=== PATIENT | female | born 1960 | race African-American/Black ===

== ENCOUNTER 2017-12-07 09:14 | Emergency (ER) | payer SELFPAY ==
[2017-12-07] MEDS ORDERED: SODIUM CHLORIDE 0.9% 1,000 ML IV ONE (09:39)
--- NOTE | 2017-12-07 09:42 | ED Physician Documentation ---
PD HPI NVD - Stated complaint Stated Complaint: ABD PX - Chief complaint Chief Complaint: Abd Pain - History obtained from History obtained from: Patient, Family - History of Present Illness Timing - onset: How many days ago (3) Timing - duration: Days (3) Timing - details: Gradual onset, Still present Associated symptoms: Abdominal pain, Dizzy, Loss of appetite, Other (diarrhea) Contributing factors: Other (hot work environment with exposure to glue gun fumes.) Improved by: Laying still Worsened by: Eating, Moving, Position, Palpation Similar symptoms before: Has not had sx before Recently seen: Not recently seen - Additonal information Additional information: Previously healthy 57-year-old female works at [employer]. 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 The following day she spent most of the day in bed and had the onset of diarrhea. She developed some abdominal pain on on that day and yesterday pain was worse as well as vomiting. She has had a decreased appetite and she has felt warm. Review of Systems Constitutional: reports: Fever, Fatigue, Sweats Eyes: denies: Decreased vision Ears: denies: Ear pain Nose: denies: Rhinorrhea / runny nose, Congestion Throat: denies: Sore throat Cardiac: denies: Chest pain / pressure, Palpitations Respiratory: denies: Dyspnea, Cough GI: reports: Abdominal Pain, Nausea, Vomiting, Diarrhea : denies: Dysuria, Frequency Skin: denies: Rash Musculoskeletal: denies: Neck pain, Back pain, Extremity pain Neurologic: reports: Generalized weakness. denies: Focal weakness, Numbness PD PAST MEDICAL HISTORY - Present Medications Home Medications: Ambulatory Orders Medication Instructions Recorded Confirmed No Known Home Medications [No 12/07/17 12/07/17 Known Home Medications] - Allergies Allergies/Adverse Reactions: Allergies Allergy/AdvReac Type Severity Reaction Status Date / Time No Known Drug Allergies Allergy Verified 12/07/17 09:19 PD ED PE NORMAL - Vitals Vital signs reviewed: Yes (hypertensive ) - General General: Alert and oriented X 3, No acute distress, Well developed/nourished - HEENT HEENT: Atraumatic, PERRL, EOMI - Neck Neck: Supple, no meningeal sign, No bony TTP - Cardiac Cardiac: RRR, No murmur - Respiratory Respiratory: No respiratory distress, Clear bilaterally - Abdomen Abdomen: Soft, Other (RLQ tenderness with referred tenderness and reproducible tenderness. ) - Back Back: No CVA TTP, No spinal TTP - Derm Derm: Normal color, Warm and dry, No rash - Extremities Extremities: No deformity, No edema - Neuro Neuro: Alert and oriented X 3, No motor deficit, No sensory deficit, Normal speech Eye Opening: Spontaneous Motor: Obeys Commands Verbal: Oriented GCS Score: 15 - Psych Psych: Normal mood, Normal affect Results - Vitals Vitals: Vital Signs - 24 hr 12/07/17 12/07/17 09:20 11:28 Temperature 36.0 C L 36.5 C Heart Rate 87 70 Respiratory 16 16 Rate Blood Pressure 167/86 H 133/93 H O2 Saturation 99 100 Oxygen O2 Source Room air - Labs Labs: Laboratory Tests 12/07/17 12/07/17 12/07/17 10:15 10:15 10:15 WBC 7.0 RBC 4.41 Hgb 12.6 Hct 38.6 MCV 87.5 MCH 28.6 MCHC 32.6 RDW 13.6 Plt Count 278 MPV 8.4 Neut # (Auto) 4.0 Lymph # (Auto) 2.3 [place] # (Auto) 0.5 Eos # (Auto) 0.1 Baso # (Auto) 0.0 Absolute Nucleated RBC 0.00 Nucleated RBC % 0.0 Sodium 135 Potassium 3.4 L Chloride 103 Carbon Dioxide 26 Anion Gap 6.0 BUN 5 L Creatinine 0.9 Estimated GFR (MDRD) 78 L Glucose 95 Calcium 8.7 Total Bilirubin 0.6 AST 20 ALT 18 Alkaline Phosphatase 102 Total Protein 7.5 Albumin 3.8 Globulin 3.7 Albumin/Globulin Ratio 1.0 Lipase 20 L Urine Color LIGHT YELLOW Urine Clarity CLEAR Urine pH 6.0 Ur Specific [place] <=1.005 Urine Protein NEGATIVE Urine Glucose (UA) NEGATIVE Urine Ketones NEGATIVE Urine Occult Blood NEGATIVE Urine Nitrite NEGATIVE Urine Bilirubin NEGATIVE Urine Urobilinogen 0.2 (NORMAL) Ur Leukocyte Esterase NEGATIVE Ur Microscopic Review NOT INDICATED Urine Culture Comments NOT INDICATED - Rads (name of study) CT abd pel Radiology: Prelim report reviewed (Impression: 1. No bowel obstruction or inflammatory process associated with the bowel 2. no free air or fluid in the abdomen or pelvis 3. the appendix images normally.), EMP read indepedently, See rad report Procedures - IVC sono (time) 4973 Bedside IVC sono: IVC measures (cm) (1.27), Dehydration (est 1 liter deficit) PD MEDICAL DECISION MAKING - ED course Complexity details: reviewed old records, reviewed results, re-evaluated patient , considered differential, d/w patient, d/w family ED course: 57 y/o female not feeling well after heated work day and fumes from glue gun is found to be dehydrated and she is administered IV saline. The patient has right lower quadrant pain on exam and CT scan of the abdomen and pelvis reveals a normal appendix and bowels and a large fibroid that is heavily calcified and appears large enough to cause symptoms. She feels much improved with hydration and her work place is excessively hot. I will place her off work this week and ask her to follow up with RESIDENTIAL SALES REPRESENTATIVE with regards to the fibroid. - Sepsis Event Vital Signs: Vital Signs - 24 hr 12/07/17 12/07/17 09:20 11:28 Temperature 36.0 C L 36.5 C Heart Rate 87 70 Respiratory 16 16 Rate Blood Pressure 167/86 H 133/93 H O2 Saturation 99 100 Oxygen O2 Source Room air Departure - Departure Disposition: 01 Home, Self Care Clinical Impression: Dehydration Fibroid, uterine Qualifiers: Uterine leiomyoma location: unspecified location Qualified Code(s): D25.9 - Leiomyoma of uterus, unspecified Condition: Stable Instructions: ED Dehydration, ED Fibroids Follow-Up: [facility] [Provider Group] [facility] [Provider Group] Forms: Activity restrictions
[2017-12-07 10:22] LABS: BASOPHILS % (AUTO) 0.6 %; EOSINOPHILS # (AUTO) 0.1 10^3/uL (0.0-0.7); HGB - HEMOGLOBIN 12.6 g/dL (12.0-16.0); LYMPHOCYTES # (AUTO) 2.3 10^3/uL (1.5-3.5); LYMPHOCYTES % (AUTO) 32.6 %; MEAN CORPUSCULAR HEMOGLOBIN 28.6 pg (27.0-31.0); MEAN CORPUSCULAR HGB CONC 32.6 g/dL (32.0-36.0); MEAN CORPUSCULAR VOLUME 87.5 fL (81.0-99.0); MEAN PLATELET VOLUME 8.4 fL (7.9-10.8); MONOCYTES # (AUTO) 0.5 10^3/uL (0.0-1.0); MONOCYTES % (AUTO) 7.3 %; NEUTROPHILS % (AUTO) 57.5 %; PLT - PLATELET COUNT 278 10^3/uL (130-450); RED BLOOD COUNT 4.41 10^6/uL (4.20-5.40); RED CELL DISTRIBUTION WIDTH 13.6 % (12.0-15.0)
[2017-12-07 10:23] LABS: BILIRUBIN,URINE NEGATIVE (NEGATIVE); GLUCOSE, URINE (UA) NEGATIVE (NEGATIVE); KETONES,URINE (UA) NEGATIVE (NEGATIVE); LEUKOCYTE ESTERASE, URINE NEGATIVE (NEGATIVE); NITRITE,URINE NEGATIVE (NEGATIVE); OCCULT BLOOD,URINE NEGATIVE (NEGATIVE); PROTEIN,URINE NEGATIVE (NEGATIVE); UROBILINOGEN,URINE 0.2 (NORMAL) E.U./dL (NORMAL)
[2017-12-07 10:26] LABS: CLARITY,URINE CLEAR (CLEAR)
[2017-12-07 10:35] LABS: ALBUMIN 3.8 g/dL (3.2-5.5); BILIRUBIN,TOTAL 0.6 mg/dL (0.2-1.0); CALCIUM 8.7 mg/dL (8.5-10.3); CREATININE 0.9 mg/dL (0.4-1.0); TOTAL PROTEIN 7.5 g/dL (6.7-8.2)
--- NOTE | 2017-12-07 10:47 | CT Report ---
Procedure Date: 12/07/2017 Accession Number: [id number] / [id number] Procedure: CT - Abdomen/Pelvis W/O CPT Code: FULL RESULT: EXAM: CT ABDOMEN AND PELVIS EXAM DATE: 12/07/2017 10:05 AM. CLINICAL HISTORY: RLQ pain. COMPARISONS: None. TECHNIQUE: Routine helical CT imaging was performed through the abdomen and pelvis. IV contrast: None. Enteric contrast: No. Reconstructions: Coronal and sagittal. In accordance with CT protocol optimization, one or more of the following dose reduction techniques were utilized for this exam: automated exposure control, adjustment of mA and/or KV based on patient size, or use of iterative reconstructive technique. FINDINGS: Lung Bases: Unremarkable. Liver: Normal. No masses. Gallbladder/Bile Ducts: Unremarkable. Spleen: Normal. Pancreas: Normal. Adrenal Glands: Normal. Kidneys: Normal. No masses or hydronephrosis. Peritoneal Cavity/Bowel: Normal. No free fluid, free air or adenopathy. No masses or acute inflammatory process. The appendix is well visualized and normal. Pelvic Organs: Large calcified fibroid in the uterus. The bladder is unremarkable. Vasculature: No aneurysms or other significant abnormality. Bones: No significant abnormality. Other: None. IMPRESSION: 1. No bowel obstruction or inflammatory process associated with the bowel. 2. No free air or fluid in the abdomen or pelvis. 3. The appendix images normally. RADIA
[2017-12-07] MEDS ORDERED: POTASSIUM BICARB 25 MEQ TABLET PO STA (11:21)
[2017-12-07 11:29] VITALS: BP 133/93
== END 2017-12-07 11:48 | disposition home or self-care (01) ==
LOC: ED 09:14
DX: E86.0 Dehydration (principal); D25.9 Leiomyoma of uterus, unspecified
CPT/HCPCS: 36415; 74176; 80053; 81003; 83690; 85025; 96360; 99283; 99284; A9270; 81001; 87086

== ENCOUNTER 2017-12-30 10:38 | Outpatient (CLI) | payer MEDICAID ==
--- NOTE | 2017-12-30 13:16 | Ultrasound Report ---
Procedure Date: 12/30/2017 Accession Number: [id number] / [id number] Procedure: US - Pelvic w/Transvaginal CPT Code: FULL RESULT: EXAM: Pelvic w/Transvaginal DATE: 12/30/2017 11:40 AM CLINICAL HISTORY: LEIOMYOMA OF UTERUS,UNSPECIFIED COMPARISON: None. TECHNIQUE: Realtime transabdominal imaging performed to identify the uterus and adnexa and as an overview of other pelvic structures, followed by transvaginal imaging for better assessment of the endometrium and/or adnexa, with static image documentation. FINDINGS: Uterus: 8.3 x 4.8 x 7.5 cm, volume 156 cc. Anteverted position. Normal overall size and echotexture. Masses: At least 3 masses with the appearance suggestive of fibroids, some of which are calcified. The dominant/largest fibroid is myometrial in location and measures 6.1 x 4.7 x 6.7 cm. Endometrium: 4.4 mm. Limited visualization due to acoustic drop out from calcifications as described above. Cervix: Unremarkable. Right Ovary/Adnexa: 2.2 x 1.6 x 1.7 cm, volume 3.1 cc. Normal echotexture. Blood flow is present. No adnexal mass is seen. Left Ovary/Adnexa: 2.3 x 1.5 x 1.3 cm, volume 2.7 cc. Normal echotexture. Blood flow is present. No adnexal mass is seen. Free Fluid: None. Other: None. IMPRESSION: Uterine leiomyomata. RADIA
== END 2017-12-30 10:39 | disposition home or self-care (01) ==
LOC: DI 10:38
PROVIDERS: ATTEND Obstetrics & Gynecology
DX: D25.9 Leiomyoma of uterus, unspecified (principal)
CPT/HCPCS: 76830; 76856

== ENCOUNTER 2018-03-15 12:08 | Outpatient (CLI) | payer MEDICAID ==
[2018-03-15 12:55] LABS: BASOPHILS % (AUTO) 0.4 %; EOSINOPHILS # (AUTO) 0.2 10^3/uL (0.0-0.7); HGB - HEMOGLOBIN 12.5 g/dL (12.0-16.0); LYMPHOCYTES % (AUTO) 37.8 %; MEAN CORPUSCULAR HEMOGLOBIN 28.8 pg (27.0-31.0); MEAN CORPUSCULAR VOLUME 87.3 fL (81.0-99.0); MEAN PLATELET VOLUME 9.3 fL (7.9-10.8); MONOCYTES # (AUTO) 0.6 10^3/uL (0.0-1.0); MONOCYTES % (AUTO) 7.4 %; NEUTROPHILS # (AUTO) 4.2 10^3/uL (1.5-6.6); NEUTROPHILS % (AUTO) 52.4 %; PLT - PLATELET COUNT 252 10^3/uL (130-450); RED BLOOD COUNT 4.35 10^6/uL (4.20-5.40); RED CELL DISTRIBUTION WIDTH 13.8 % (12.0-15.0)
[2018-03-15 13:26] LABS: BILIRUBIN,URINE NEGATIVE (NEGATIVE); GLUCOSE, URINE (UA) NEGATIVE (NEGATIVE); KETONES,URINE (UA) NEGATIVE (NEGATIVE); LEUKOCYTE ESTERASE, URINE NEGATIVE (NEGATIVE); NITRITE,URINE NEGATIVE (NEGATIVE); OCCULT BLOOD,URINE NEGATIVE (NEGATIVE); PROTEIN,URINE NEGATIVE (NEGATIVE); UROBILINOGEN,URINE 0.2 (NORMAL) E.U./dL (NORMAL)
[2018-03-15 13:27] LABS: CLARITY,URINE CLEAR (CLEAR)
== END 2018-03-15 12:09 | disposition home or self-care (01) ==
LOC: LAB 12:08
PROVIDERS: ATTEND Obstetrics & Gynecology
DX: Z01.811 Encounter for preprocedural respiratory examination (principal); R10.2 Pelvic and perineal pain; D25.9 Leiomyoma of uterus, unspecified
CPT/HCPCS: 36415; 81003; 85025; 86850; 86900; 86901; 93005

== ENCOUNTER 2018-03-17 07:27 | Day surgery (SDC) | payer MEDICAID ==
--- NOTE | 2018-03-15 18:57 | PREOP HISTORY & PHYSICAL ---
DATE OF SERVICE: 03/15/2018 Physician: Radames Rosas MD DIAGNOSES 1. Large uterus with multiple myomas. 2. Associated pelvic pain and pressure. HISTORY OF PRESENT ILLNESS: Lyndsey Weiss is a 57-year-old multigravida, who was seen in the emergency room on 12/07/2017 and noted to have a large abdominal/pelvic mass. She noted a midline abdominal pain and pressure. She has no history of fibroids. She has no history of postmenopausal bleeding. CT scan notes a large calcified fibroid without other pathology. Followup ultrasound in December documented 3 large myomas, the largest being 6.7 cm. The right and left ovary were normal without cystic activity. Adnexal blood flow was present. Today's hemoglobin is normal at 12.5 with a white count of 8.0. The patient reports no fevers, chills, night sweats, or unexplained weight loss. Preoperative counseling session included review of laboratory tests, CT scan, ultrasound, differential diagnosis, and natural history of uterine leiomyoma. She was given ACOG brochures on both the leiomyoma natural history, general information, and treatment options. The patient rejected fibroid embolization and MRI focused ultrasound in favor of hysterectomy. Hysterectomy was reviewed in detail including risks and benefits. The patient's daughter sat in on this session. The patient's last Pap smear was in 11/2017 and normal. PAST MEDICAL HISTORY: The patient is healthy without chronic disease or surgical history. REVIEW OF SYSTEMS CONSTITUTIONAL: Negative. HEENT: Negative. CARDIOVASCULAR: Negative. RESPIRATORY: Negative. GASTROINTESTINAL: Negative. GYNECOLOGIC/OBSTETRIC: No regular care noted. MUSCULOSKELETAL: Negative. DERMATOLOGIC: Negative. BREASTS: Negative. NEUROLOGIC: Negative. PSYCHIATRIC: Negative. FAMILY HISTORY: No gynecologic malignancy . SOCIAL HISTORY: The patient works at [employer]. At times, she feels overworked. No drug, tobacco or alcohol history. MEDICATIONS: None. ALLERGIES: NO KNOWN DRUG ALLERGIES. PHYSICAL EXAMINATION GENERAL: Well groomed, pleasant demeanor, normal physical stature and appearance. HEENT: Dentition in good repair. No thyromegaly. NECK: Supple. LUNGS: Clear to auscultation in all lobes. CARDIAC: Regular, no murmur, no gallop. ABDOMEN: Soft, nontender. No organomegaly. Small bulge above the pubic symphysis (uterus). PELVIC: External genitalia, no lesions. Normal Bartholin's glands. Vagina, moist mucosa. No significant prolapse. Cervix normal secretions. No ulcerations. Uterus enlarged, tender, retroverted, approximately 12-13 weeks' size. Adnexa difficult to palpate due to fibroids, but no adnexal pathology on ultrasound. MUSCULOSKELETAL: Full range of motion. No CVA tenderness. No edema or muscle wasting. SKIN: No notable rash. NEUROLOGIC: Grossly intact. PSYCHOLOGIC: Alert, oriented, appropriate. LABORATORY DATA: Hemoglobin 12.5, white count 8.0, platelet count 252. Sodium 135, potassium 3.4, creatinine 0.9. Liver enzymes normal. Lipase slightly low at 20. Urinalysis negative. ASSESSMENT: Lyndsey Weiss is a 57-year-old woman who has symptomatic uterine leiomyoma with tenderness and pressure prompting her to consider intervention. After examining various interventions (embolization versus focused ultrasound), the patient has elected for a hysterectomy. Appropriate preoperative counseling was given. There are no obvious chronic disease problems. PLAN: Laparoscopic-assisted vaginal hysterectomy with bilateral salpingectomy. The patient desires her ovaries to be removed if they seem diseased; otherwise, she would like to keep them intact. We will perform a Washburn's procedure in addition to support the apex. A routine cystoscopy will be done postoperatively. The patient will require preoperative Ancef 2 grams. Sequential compression device will be needed. TD: 03/15/2018 18:21 MTDD
[~2018-03-17 07:27] MED LIST: ACETAMINOPHEN 1,000 MG/100 ML 100 ML IV ONE; CELECOXIB 100 MG CAPSULE PO ONE; ceFAZolin 2 GM/50 ML 2 GM/50 ML BAG IV ONE
[2018-03-17] MEDS ORDERED: GABAPENTIN 400 MG CAPSULE ONE (07:28)
[2018-03-17] MEDS ORDERED: BUPIVACAINE 0.25%-EPI 1:200000 PF 30 ML VIAL ONE ×2 (07:29→11:23)
[2018-03-17] MEDS ORDERED: LACTATED RINGERS 1,000 ML IV ONE ×2 (07:48→10:24)
--- NOTE | 2018-03-17 07:49 | ANESTHESIA ---
Pre-Anesthesia VS, & Labs - Diagnosis Pelvic pain, uterine fibroids - Procedure Laparoscopic assisted vaginal hysterectomy, bilateral salpingectomy, McCalls culdoplasty Vital Signs: Last Vital Signs Temp 36.1 C L 03/17/18 08:01 Pulse 69 03/17/18 08:01 Resp 16 03/17/18 08:01 BP 126/87 H 03/17/18 08:01 Pulse Ox 100 03/17/18 08:01 Height 5 ft 4 in Body Mass Index 27.4 - NPO >8 hours Last Fluid Intake: coffee @0500 - Is Patient ?: No Home Medications and Allergies Home Medications: Ambulatory Orders Naproxen Sodium [Aleve] 220 mg PO Q8HR PRN 03/15/18 No Known Home Medications 12/07/17 Naproxen Sodium [Aleve] 220 mg PO Q8HR PRN 03/15/18 Allergies/Adverse Reactions: Allergies Allergy/AdvReac Type Severity Reaction Status Date / Time No Known Drug Allergies Allergy Verified 12/07/17 09:19 Anes History & Medical History - Anesthetic History Anesthesia Complications: reports: No previous complications (C-scope) Family history of Anesthesia Complications: Denies Family history of Malignant Hyperthermia: Denies - Medical History Cardiovascular: reports: None Pulmonary: reports: None Gastrointestinal: reports: None Urinary: reports: None Musculoskeletal: reports: None Endocrine/Autoimmune: reports: None Skin: reports: None Smoking Status: Never smoker - Surgical History General: Colonoscopy Eyes Ears Nose Throat (EENT): Cataracts Results - EKG Results EKG Comparison: Reviewed EKG (SR@63) Exam General: Alert, Oriented x3, Cooperative, No acute distress Dental: WNL Mouth Opening: Greater than 4 Fingerbreadths Neck Mobility: Normal Mallampati classification: I Thyromental Distance: 4-6 cm Respiratory: Lungs clear, Normal breath sounds, No respiratory distress, No accessory muscle use Cardiovascular: Regular rate, Normal S1, Normal S2, No murmurs Neurological: Normal speech Mental/Cognitive Status: Alert/Oriented X3 Plan Anesthesia Type: General Consent for Procedure(s) Verified and Reviewed: Yes Code Status: Attempt Resuscitation ASA classification: 2-Mild systemic disease Is this case an emergency?: No
[2018-03-17] MEDS ORDERED: BUPIVACAINE 0.25%-EPI 1:200000 PF 30 ML VIAL SUBQ ONE ×3 (09:45)
[2018-03-17] MEDS ORDERED: ONDANSETRON 4 MG/2 ML VIAL IVP PRN (11:41)
[2018-03-17] MEDS ORDERED: PROPOFOL 200 MG/20 ML VIAL IVP ONE (11:59)
[2018-03-17] MEDS ORDERED: ROCURONIUM 50 MG/5 ML VIAL IVP ONE (11:59)
[2018-03-17] MEDS ORDERED: fentaNYL 250 MCG/5 ML VIAL IVP ONE (11:59)
[2018-03-17] MEDS ORDERED: GLYCOPYRROLATE 1 MG/5 ML VIAL IVP ONE (11:59)
[2018-03-17] MEDS ORDERED: ePHEDrine 50 MG/ML VIAL IVP ONE (11:59)
[2018-03-17] MEDS ORDERED: ONDANSETRON 4 MG/2 ML VIAL IVP ONE (11:59)
[2018-03-17] MEDS ORDERED: NEOSTIGMINE 1 MG/1 ML 10 ML MDV IVP ONE (11:59)
[2018-03-17] MEDS ORDERED: LIDOCAINE-PF 4% 5 ML AMP SUBQ ONE (11:59)
[2018-03-17] MEDS ORDERED: KETOROLAC 30 MG/ML VIAL IVP ONE (11:59)
[2018-03-17] MEDS ORDERED: DEXAMETHASONE 4 MG/ML VIAL IVP ONE (11:59)
[2018-03-17] MEDS ORDERED: MIDAZOLAM 2 MG/2 ML VIAL IVP ONE (11:59)
[2018-03-17] MEDS ORDERED: LACTULOSE 10 GM /15 ML UDC PO SCH (12:00)
--- NOTE | 2018-03-17 12:05 | OPERATIVE REPORT ---
Operative Report - General Planned Procedure: Hysterectomy with bilateral salpingectomy and possible oophorectomy Pre-Op Diagnosis: Large 14-week size uterus with dominant calcified fibroid; Pelvic pain Procedure Performed: Laparoscopic assisted vaginal hysterectomy; morcellation of large uterus; bilateral salpingectomy; Cystoscopy; ovaries spared (per patient's wishes) Post Op Diagnosis: Same as above - Procedure Note Primary Surgeon: Radames Rosas MD, F ACOG, FICS Secondary Surgeon: Radames Joseph MD, FACOG Anesthesia Provider: Junior Fernando, certified nurse steward/stewardess second class Anesthesia Technique: General ET tube Pathology: Uterus tubes and cervix sent to pathology in a morcellated state IV Fluids (mL): 1,500 Estimated Blood Loss (mL): 30 Urine Output (mL): 400 (Clear) Drain/Tube Type: Other (Singh) - Other Other Information/Narrative: Findings 1. The external genitalia and Bartholin's glands have no pathologic findings. The vagina is fairly well suspended with only minimal cystorectocele. The cervix appeared normal without cervicitis or lesions. 2. The uterus was enlarged and bilobed with a 6-7 cm fibroid at the fundus. Th e uterine size was approximately 14 weeks size. There were flecks of calcium found in the fibroid upon excision. 3. The tubes had been ligated. The fimbriated to was normal-appearing. 4. The ovaries appear to be normal bilaterally. There was no cystic activity, tubal excrescences or abnormal vascularity present. As per the patient's wishes both ovaries were spared. 5. There were minor adhesions between the posterior aspect of the uterus and epiploicae of the colon. There were minor adhesions found as well around the ovaries and uterus itself. 6. The bladder was inspected and found to have a normal appearance without inflammation, ulceration or suspect lesion. Both tubal orifices were open and passing clear urine. 7. We search for the appendix but could not find it and it is assumed to be retrocecal. Description of surgery I met the patient and her daughter in the preanesthesia holding room to discuss the procedure today. I reviewed the mechanics, risks, and benefits. I confirmed with her that she did not want her ovaries removed unless pathology was evident on examination. All questions were answered. Patient was placed on the operating table in the supine position. She was uneventfully induced and intubated. She was moved to the low dorsal lithotomy position on [facility]. She was prepped and draped in the customary sterile fashion. Timeout briefing was done per protocol. Singh catheter and HUMI uterine manipulator were uneventfully placed. Small amount of Marcaine quarter percent was injected under the umbilical skin fold and a small incision placed. 5 mm Visiport trocar was uneventfully placed into the abdominal cavity under direct visualization. The abdominal cavity was then insufflated with CO2 gas at 12 mm. Under direct visualization right and left 5 mm Visiport operating ports were placed. The abdomen was assessed and photographed. In the cul-de-sac there were filmy adhesions tacking rectal epiploica to the back of the uterus. These were on uneventfully lysed with LigaSure. Next the left tube was placed on tension medially and superiorly. The mesosalpinx was then desiccated and divided with LigaSure. The dissection was continued up to the gap in the uterosacral ligament from her prior tubal ligation. Next the uterus ovarian ligament and round ligament were desiccated and divided. Diss ection was continued downward to the uterine vessels which in turn were desiccated and divided. Bladder flap was developed with LigaSure. The cardinal ligament and uterosacral ligament complex were dense fibrous tissue. The process was duplicated on the right-hand side. Once the round and uterine ovarian ligaments were divided the broad ligament was then divided. There was thick scarification at the superior portion of the uterus close to where the large fibroid arose. The band of scar tissue was carefully divided in layers frequently checking the position of the ureter to ensure to minimize chance of mishap. This process was continued down to the ureteral uterine vessels which were desiccated and divided divided. The bladder flap dissection was continued. At this point we chose to convert to the vaginal phase of the procedure in order to better appreciate the relationship between the cervix and potential path of the ureter on the right-hand side. All CO2 gas was desufflated from the abdomen. The patient was then placed from the low to the high dorsal lithotomy position. Weighted speculum was placed. Cordell clamps were placed on the cervix to provide firm downward traction. A halo type liquid tourniquet was created by multiple small aliquots of quarter percent Marcaine with epinephrine. The cervix was then circumscribed. Using blunt and sharp dissection the anterior and posterior cul-de-sacs were sharply entered. The base of the uterosacral ligaments were clamped on each side divided and transfixed with 0 Vicryl. We advanced in a stepwise fashion up the uterosacral ligaments staying as close as possible to the cervical barrel margin. This involved multiple clamping transection and suturing maneuvers. Eventually the uterus was mobilized. We attempted to rotate the uterus posterior (Doderlien fashion) to have a adequate access thereby allowing morcellation. First the cervix was V'ed and removed. Next we began to excise the uterus in a multiple pieces using scalpel. We encountered a densely calcific uterine body which was removed in small portions. Eventually the uterus decompressed enough to allow removal. The pelvic peritoneum was pursestringed with a suture of 2-0 Vicryl. The uterosacral ligament stitches were then sutured into the lateral cuff corners to provide secure fixation. The Uterosacral sutures were placed on tension and 10 cc of Marcaine quarter percent was injected into the bodies of the ligament. The uterosacral ligament bodies then were plicated in the midline with 2 stitches of 2-0 Ethibond to create secure apical suspension. The 0 Vicryl sutures on the base of the uterosacral ligament were like likewise plicated in the midline. The vaginal mucosa was closed with a running stitch of 0 chromic. The abdomen was reinsufflated with CO2 gas and inspected. It was ensured that all bleeding vessels were secure and. The abdomen was lavaged with warm normal saline. Approximately 1 L was left into the abdomen with the patient in the Trendelenburg position. All CO2 gas was vented. Skin wounds were closed with subcuticular stitches of 4-0 Monocryl and dressed with Dermabond. 70 degree video cystoscope then was introduced through the urethra. The bladder interior was inspected and there were no incursions. Both ureters had free flow of clear urine. At this point the Singh catheter was replaced. Final sponge needle and instrument count was confirmed correct. Patient was moved to the supine. She was extubated and aroused from general anesthesia. She went into the recovery room in good condition. Intraoperative findings were shared with the patient and her family. She will remain overnight with anticipated discharge in the morning.
[2018-03-17] MEDS: HYDROmorphone 1 MG/ML CARPUJECT ONE ×2 (12:33→12:43)
[2018-03-17] MEDS ORDERED: SODIUM CHLORIDE FLUSH 0.9% 10 ML SYRINGE ONE ×2 (13:41→14:40)
[2018-03-17] MEDS: HYDROcod/ACETAM 5/325 MG TABLET PO PRN ×2 (14:18→18:16)
[2018-03-17] MEDS: IBUPROFEN 600 MG TABLET PO SCH ×2 (14:20→19:07)
[2018-03-17 19:10] VITALS: BP 130/84
[2018-03-18] MEDS ORDERED: DOCUSATE SODIUM 250 MG CAPSULE PO SCH (09:00)
== END 2018-03-17 21:40 | disposition home or self-care (01) ==
LOC: SDS 07:27 → OBS 13:26 → SDS 21:40
PROVIDERS: ATTEND Obstetrics & Gynecology
PROC: 0UT7FZZ Resection of Bilateral Fallopian Tubes, Via Natural or Artificial Opening With Percutaneous Endoscopic Assistance (ICD-10-PCS; 2018-03-17)
PROC: 0UT9FZZ Resection of Uterus, Via Natural or Artificial Opening With Percutaneous Endoscopic Assistance (ICD-10-PCS; principal; 2018-03-17 09:15)
DX: D25.9 Leiomyoma of uterus, unspecified (principal); N73.6 Female pelvic peritoneal adhesions (postinfective); N81.10 Cystocele, unspecified
CPT/HCPCS: 58552; A9270; J0131; J0690; J1170; J3010; J7120

== ENCOUNTER 2018-04-24 08:38 | Emergency (ER) | payer MEDICAID ==
[2018-04-24 08:47] VITALS: BP 154/90
--- NOTE | 2018-04-24 08:47 | ED Physician Documentation ---
PD HPI LOWER EXT INJURY - Stated complaint Stated Complaint: R KNEE PX - Chief complaint Chief Complaint: Ext Problem - History obtained from History obtained from: Patient - History of Present Illness PD HPI LOW EXT INJURY LOCATION: Right, Knee Type of injury: Other (she has had some pains in knee for few weeks. Has some pops at times. Her granddaughter was sitting on her knee awhile yesterday and today her knee is hurting with swelling. No direct impact nor acute injury.). No: Fall, Twist Where injury occurred: Home Timing - onset: Last night Timing - details: Abrupt onset Worsened by: Moving, Other (walking, particularly up steps) Associated symptoms: Swelling (of knee joint; no swelling in calf.). No: Weakness, Numbness, Discolored Similar symptoms before: No diagnosis Recently seen: Not recently seen Review of Systems Constitutional: denies: Fever, Chills, Myalgias Throat: denies: Dental pain / toothache, Sore throat : denies: Dysuria, Frequency Skin: denies: Rash, Lesions Musculoskeletal: denies: Back pain PD PAST MEDICAL HISTORY - Past Medical History Cardiovascular: None Endocrine/Autoimmune: None Musculoskeletal: Osteoarthritis - Present Medications Home Medications: Ambulatory Orders Medication Instructions Recorded Confirmed Naproxen Sodium [Aleve] 220 mg PO BID 03/15/18 04/24/18 Dexamethasone [Decadron] 4 mg PO DAILY #5 tablet 04/24/18 Hydrocodone/Acetaminophen [[place] 1 each PO Q6H PRN #20 tablet 04/24/18 5-325 Tablet] RX: Naproxen 375 mg PO BID #20 tablet 04/24/18 - Allergies Allergies/Adverse Reactions: Allergies Allergy/AdvReac Type Severity Reaction Status Date / Time No Known Drug Allergies Allergy Verified 12/07/17 09:19 - Social History Does the pt smoke?: No Smoking Status: Never smoker PD ED PE NORMAL - Vitals Vital signs reviewed: Yes - General General: Alert and oriented X 3, No acute distress, Well developed/nourished - Back Back: No spinal TTP - Derm Derm: Normal color, Warm and dry, No rash - Extremities Extremities: Other (pain in right knee with moderate effusion. No redness nor warmth. No skin sores nor lesions. Ligament testing without pain nor laxity, though some guarding. Impaction testing with some pain more c/w meniscal process. ) Results - Vitals Vitals: Vital Signs - 24 hr 04/24/18 08:44 Temperature 36.5 C Heart Rate 86 Respiratory 16 Rate Blood Pressure 154/90 H O2 Saturation 99 Oxygen O2 Source Room air PD MEDICAL DECISION MAKING - ED course Complexity details: considered differential (no fall nor impact, so xrays not much useful. She has effusion but not red nor warm and no fever. Consider gout but does not seem it and does not seem infectious. So opted not to do arthrocentesis. ), d/w patient Departure - Departure Disposition: Home, Self Care Clinical Impression: Knee effusion, right Knee pain, acute Qualifiers: Laterality: right Qualified Code(s): M25.561 - Pain in right knee Condition: Stable Record reviewed to determine appropriate education?: Yes Instructions: ED Meniscal Injury Knee Poss Follow-Up: [facility] [Provider Group] Prescriptions: Dexamethasone [Decadron] 4 mg PO DAILY #5 tablet Hydrocodone/Acetaminophen [[place] 5-325 Tablet] 1 each PO Q6H PRN #20 tablet PRN Reason: Pain RX: Naproxen 375 mg PO BID #20 tablet Comments: I think this is either a flareup of some arthritis in the knee or more likely an injury of the cartilage (meniscus) with some inflammation and therefore the fluid in the knee joint. We will have you take some anti-inflammatories of both naproxen and dexamethasone over the next 5 days. Add Tylenol or hydrocodone if needed for pain. Follow-up with orthopedics, call Thursday for an appointment, to better evaluate the ongoing cause of the knee pain. Discharge Date/Time: 04/24/18 09:44
[2018-04-24] MEDS ORDERED: DEXAMETHASONE 10 MG/ML VIAL PO STA (09:12)
[2018-04-24] MEDS ORDERED: NAPROXEN 250 MG TABLET PO STA (09:12)
[2018-04-24] MEDS ORDERED: HYDROcod/ACETAM 5/325 MG TABLET PO STA (09:12)
== END 2018-04-24 09:44 | disposition home or self-care (01) ==
LOC: ED 08:38
DX: M25.461 Effusion, right knee (principal)
CPT/HCPCS: 99283; A9270

== ENCOUNTER 2018-06-01 14:26 | Outpatient (CLI) | payer MEDICAID ==
--- NOTE | 2018-06-01 17:08 | MRI Report ---
Reason: KNEE JOINT PAIN > 3 MONTHS,RIGHT Procedure Date: 06/01/2018 Accession Number: [id number] / [id number] Procedure: MRI - Knee RT W/O CPT Code: FULL RESULT: EXAM: RIGHT KNEE MRI WITHOUT CONTRAST EXAM DATE: 06/01/2018 03:24 PM. CLINICAL HISTORY: Right knee joint pain for 3 months. COMPARISON: XR KNEE RT 3V 04/30/2018 6:05 PM. TECHNIQUE: Multiplanar, multisequence T1-weighted and fluid-sensitive sequences of the knee without contrast. Other: None. 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 There is a larger area of patchy marrow edema at the remaining medial femoral condyle. Minimal subchondral marrow edema at the medial aspect of the medial tibial plateau. Grade 2 chondromalacia at the medial tibial plateau. Grade 2 chondromalacia at the lateral tibial plateau. Small partial-thickness articular cartilage fissure at the median ridge of the patella. No patellar subluxation. Medial Meniscus: Vertically oriented tear and fraying at the inner and middle thirds of the lateral aspect of the posterior horn. The medial meniscal body is partially extruded medially from the medial joint compartment. Lateral Meniscus: The lateral meniscus is intact. Cruciate Ligaments: Sprain and/or mucoid degeneration of the anterior cruciate ligament. Posterior cruciate ligament is unremarkable. Small ganglion within the distal aspect of the anterior cruciate ligament. Collateral Ligaments: The medial collateral and lateral collateral ligamentous structures are intact. Tendons: The quadriceps, patellar, semimembranosus, and popliteus tendons are unremarkable. Musculature: No edema or fatty atrophy. Other: Small to moderate-sized joint effusion. Small to moderate sized multilocular popliteal cyst which is partially ruptured. No loose bodies. The medial and lateral retinacula are intact. The subcutaneous tissues and fat pads are unremarkable. IMPRESSION: 1. 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 Differential may include an osteochondral lesion/injury or an insufficiency type fracture. There is a larger area of patchy marrow edema at the medial femoral condyle which may represent bone contusion or stress reaction. 2. Vertically oriented tear and fraying at the inner and middle thirds of the lateral aspect of the posterior horn medial meniscus. The medial meniscal body is partially extruded medially from the medial joint compartment. 3. Sprain and/or mucoid degeneration at the anterior cruciate ligament. 4. Small to moderate sized joint effusion. Small to moderate sized multilocular popliteal cyst which is partially ruptured. [facility] MUSCULOSKELETAL RADIOLOGY SECTION
== END 2018-06-01 14:27 | disposition home or self-care (01) ==
LOC: DI 14:26
PROVIDERS: ATTEND Orthopaedic Surgery Sports Medicine
DX: M94.261 Chondromalacia, right knee (principal); R60.0 Localized edema; S83.241A Other tear of medial meniscus, current injury, right knee, initial encounter; M25.461 Effusion, right knee; M66.0 Rupture of popliteal cyst; M23.8X1 Other internal derangements of right knee

== ENCOUNTER 2018-08-24 14:58 | Outpatient (CLI) | payer MEDICAID | END 2018-08-24 23:59 | disposition home or self-care (01) | LOC: LAB.R 14:58 | PROVIDERS: ATTEND Nurse Practitioner Obstetrics & Gynecology | DX: R35.0 Frequency of micturition (principal) | CPT/HCPCS: 87086 ==

== ENCOUNTER 2018-09-03 07:23 | Outpatient (CLI) | payer MEDICAID ==
--- NOTE | 2018-09-08 12:19 | Mammography Report ---
Reason: SCREENING MAMMO Procedure Date: 09/03/2018 Accession Number: [id number] / [id number] Procedure: [facility] - Screening Mammo w/Sami CPT Code: FULL RESULT: EXAM: Screening Mammo w/Sami DATE: 09/03/2018 8:09 AM CLINICAL HISTORY: Screening examination. TECHNIQUE: (B) - Bilateral CC and MLO views were obtained. COMPARISON: None PARENCHYMAL PATTERN: (A) - The breasts demonstrate scattered fibroglandular densities bilaterally. FINDINGS: Multiple tiny right axillary tail intramammary lymph nodes of no significance. In the upper outer quadrant left breast, middle one third, there is a lobulated mass with mostly well-circumscribed margins. There are no other findings in either breast. No pleomorphic microcalcifications. IMPRESSION: Incomplete examination. BI-RADS category 0. RECOMMENDATION: (ADDUS) - Targeted ultrasound recommended. Callback targeted left breast ultrasound recommended to focus on upper outer quadrant. BI-RADS CATEGORY: (0) - Incomplete Examination - need additional evaluation. STANDARD QUALIFYING STATEMENTS: 1. This examination was not reviewed with the aid of Computer-Aided Detection (CAD). 2. A negative or benign imaging report should not preclude biopsy if clinically suspicious findings are present. 3. Dense breasts may obscure an underlying neoplasm. 4. This examination was reviewed with the aid of 3D breast imaging (tomosynthesis).
== END 2018-09-03 07:24 | disposition home or self-care (01) ==
LOC: DI 07:23
PROVIDERS: ATTEND Nurse Practitioner Obstetrics & Gynecology
DX: Z12.31 Encounter for screening mammogram for malignant neoplasm of breast (principal); R92.8 Other abnormal and inconclusive findings on diagnostic imaging of breast
CPT/HCPCS: 77063; 77067

== ENCOUNTER 2018-10-11 13:13 | Outpatient (CLI) | payer MEDICAID ==
--- NOTE | 2018-10-11 16:15 | Ultrasound Report ---
Reason: ABN MAMMO - LT BREAST SPEV VIEW US Procedure Date: 10/11/2018 Accession Number: [id number] / [id number] Procedure: US - Breast Unilateral Limited CPT Code: FULL RESULT: EXAM: Breast Unilateral Limited DATE: 10/11/2018 1:55 PM CLINICAL HISTORY: ABN MAMMO - LT BREAST SPEV VIEW US COMPARISON: 09/03/2018. TECHNIQUE: Targeted ultrasound was performed of the left breast in the area of clinical concern at 3 o'clock and 6 cm distance from the nipple. Color Doppler was employed as appropriate. FINDINGS: Corresponding to the mammographic finding is a 1.1 x 0.5 cm morphologically normal-appearing lymph node with preserved fatty hilum and preserved hilar vascular flow by limited color Doppler. No suspicious mass is identified. IMPRESSION: Benign findings RECOMMENDATION: Recommend routine annual Screening mammography unless otherwise clinically indicated. BIRADS CATEGORY 2: Benign findings RAD[facility]
== END 2018-10-11 13:14 | disposition home or self-care (01) ==
LOC: DI 13:13
PROVIDERS: ATTEND Registered Nurse
DX: R92.8 Other abnormal and inconclusive findings on diagnostic imaging of breast (principal)
CPT/HCPCS: 76642

== ENCOUNTER 2019-01-16 14:08 | Emergency (ER) | payer MEDICAID ==
[2019-01-16 14:17] VITALS: BP 154/87
[2019-01-16] MEDS ORDERED: LIDOCAINE TOPICAL 4% 50 ML BOTTLE MM STA (14:34)
[2019-01-16] MEDS ORDERED: MAG HYDROX/AL HYDROX/SIMETH 30 ML UDC PO STA (14:34)
--- NOTE | 2019-01-16 14:41 | ED Physician Documentation ---
PD HPI ABD PAIN - Stated complaint Stated Complaint: ABD PAIN - Chief complaint Chief Complaint: Abd Pain - History obtained from History obtained from: Patient - History of Present Illness Timing - onset: Chronic (58-year-old woman with complaints of chronic abdominal pain. She says it started about a year ago when she had a hysterectomy for fibroids. Since then she has had urinary frequency despite trialing oxybutynin. She feels hot all the time despite having already been through menopause. She has kind of bilateral upper quadrant pain that does not change with eating but is worse at night. It is not constant now but it has been constant in the past. She has been gaining a little bit of weight with this. She vacillates and changes between soft stools and constipation. She denies nausea but has tried making herself throw up when the symptoms are bad which is not helpful. She says she was seen at [facility] in May with a negative work-up at the time. She also complains of vaginal foul smell without significant discharge. She is seeing a urologist for some of the symptoms and had a negative recent cystoscopy. She had a colonoscopy within the last 10 years which was normal per her. She is never had an upper endoscopy.) Review of Systems Ten Systems: 10 systems reviewed and negative Constitutional: reports: Fatigue. denies: Fever, Chills Nose: denies: Rhinorrhea / runny nose, Congestion Throat: denies: Sore throat Cardiac: denies: Chest pain / pressure, Palpitations, Pedal edema, Calf pain Respiratory: denies: Dyspnea, Cough, Hemoptysis, Wheezing GI: reports: Abdominal Pain, Constipation, Diarrhea. denies: Nausea, Vomiting, Hematemesis, Bloody / black stool : reports: Frequency. denies: Dysuria PD PAST MEDICAL HISTORY - Past Medical History Cardiovascular: None Endocrine/Autoimmune: None Musculoskeletal: Osteoarthritis - Past Surgical History Past Surgical History: Yes /[employer]: Hysterectomy - Present Medications Home Medications: Ambulatory Orders Medication Instructions Recorded Confirmed Naproxen Sodium [Aleve] 220 mg PO BID 03/15/18 04/24/18 Hydrocodone/Acetaminophen [[place] 1 each PO Q6H PRN #20 tablet 04/24/18 5-325 Tablet] Naproxen 375 mg PO BID #20 tablet 04/24/18 dexAMETHasone [Decadron] 4 mg PO DAILY #5 tablet 04/24/18 Dicyclomine [Bentyl] 20 mg PO QID PRN #30 capsule 01/16/19 Omeprazole 20 mg PO DAILY #30 capsule. 01/16/19 - Allergies Allergies/Adverse Reactions: Allergies Allergy/AdvReac Type Severity Reaction Status Date / Time No Known Drug Allergies Allergy Verified 12/07/17 09:19 - Social History Does the pt smoke?: No Smoking Status: Never smoker Does the pt drink ETOH?: No Does the pt have substance abuse?: No - Family History Family history: reports: Non contributory - Immunizations Immunizations are current?: Yes PD ED PE NORMAL - Vitals Vital signs reviewed: Yes - General General: Alert and oriented X 3, No acute distress - HEENT HEENT: PERRL, EOMI - Neck Neck: Supple, no meningeal sign, No bony TTP - Cardiac Cardiac: RRR, No murmur - Respiratory Respiratory: No respiratory distress, Clear bilaterally - Abdomen Abdomen: Other (Diminished bowel tones, mild upper abdominal tenderness, perhaps more left than right. No surgical signs.) - Back Back: No CVA TTP, No spinal TTP - Derm Derm: Normal color, Warm and dry - Extremities Extremities: No edema, No calf tenderness / cord - Neuro Neuro: Alert and oriented X 3, Normal speech Results - Vitals Vitals: Vital Signs - 24 hr 01/16/19 14:13 Temperature 36.5 C Heart Rate 100 Respiratory 14 Rate Blood Pressure 154/87 H O2 Saturation 100 Oxygen O2 Source Room air - Labs Labs: Microbiology 01/16/19 14:50 Wet Prep - Final Cervix Laboratory Tests 01/16/19 01/16/19 01/16/19 14:50 14:50 14:50 WBC 8.4 RBC 4.80 Hgb 13.1 Hct 42.3 MCV 88.1 MCH 27.3 MCHC 31.0 L RDW 13.3 Plt Count 301 MPV 10.2 Neut # (Auto) 4.3 Lymph # (Auto) 3.5 [place] # (Auto) 0.5 Eos # (Auto) 0.2 Baso # (Auto) 0.0 Absolute Nucleated RBC 0.00 Nucleated RBC % 0.0 ESR 18 Sodium 139 Potassium 3.7 Chloride 105 Carbon Dioxide 23 Anion Gap 11.0 BUN 7 Creatinine 0.8 Estimated GFR (MDRD) 89 Glucose 101 H Calcium 9.2 Total Bilirubin 0.3 AST 18 ALT 17 Alkaline Phosphatase 123 H Total Protein 8.0 Albumin 4.1 Globulin 3.9 Albumin/Globulin Ratio 1.1 Lipase 19 L Urine Color Urine Clarity Urine pH Ur Specific [place] Urine Protein Urine Glucose (UA) Urine Ketones Urine Occult Blood Urine Nitrite Urine Bilirubin Urine Urobilinogen Ur Leukocyte Esterase Ur Microscopic Review Urine Culture Comments 01/16/19 15:05 WBC RBC Hgb Hct MCV MCH MCHC RDW Plt Count MPV Neut # (Auto) Lymph # (Auto) [place] # (Auto) Eos # (Auto) Baso # (Auto) Absolute Nucleated RBC Nucleated RBC % ESR Sodium Potassium Chloride Carbon Dioxide Anion Gap BUN Creatinine Estimated GFR (MDRD) Glucose Calcium Total Bilirubin AST ALT Alkaline Phosphatase Total Protein Albumin Globulin Albumin/Globulin Ratio Lipase Urine Color YELLOW Urine Clarity CLEAR Urine pH 6.0 Ur Specific [place] 1.010 Urine Protein NEGATIVE Urine Glucose (UA) NEGATIVE Urine Ketones NEGATIVE Urine Occult Blood NEGATIVE Urine Nitrite NEGATIVE Urine Bilirubin NEGATIVE Urine Urobilinogen 0.2 (NORMAL) Ur Leukocyte Esterase NEGATIVE Ur Microscopic Review NOT INDICATED Urine Culture Comments NOT INDICATED - Rads (name of study) CT A/P Radiology: EMP read contemporaneously (NAD) PD MEDICAL DECISION MAKING - ED course ED course: This is a 58-year-old woman who is frustrated by long-standing GI symptoms of upper abdominal pain, alternating constipation and soft stools, overactive bladder, and foul odor from her female parts. Wet prep was negative. Lab work was unremarkable and a CT was without pertinent positive findings. She did have excellent relief of her abdominal pain with a GI cocktail here suggesting a gastritis component and some of her other symptoms seem reminiscent of IBS. Departure - Departure Disposition: 01 Home, Self Care Clinical Impression: Abdominal pain, Gastritis Condition: Good Record reviewed to determine appropriate education?: Yes Instructions: ED Gastritis Prescriptions: Dicyclomine [Bentyl] 20 mg PO QID PRN #30 capsule PRN Reason: Abdominal Pain Omeprazole 20 mg PO DAILY #30 capsule. Comments: As discussed, I think you have a combination of gastritis as well as inflammatory bowel syndrome. Given that you had good relief with what we call a GI cocktail here, but there seems to be some alternating constipation and soft stools as well. We are starting you on medications for both. I am confident you will have Relief, follow-up with your doctor regardless and return if worse. Your blood pressure was elevated today on check into the emergency department. This does not mean that you have hypertension, it is a common phenomenon to come to the emergency department and have elevated blood pressure. I recommend that you see your primary care physician within the week to have it rechecked when you are feeling better.
[2019-01-16] MEDS ORDERED: LIDOCAINE VISCOUS 2% 15 ML UDC MM STA (14:44)
[2019-01-16] MEDS ORDERED: IOVERSOL 320 100 ML VIAL IVP ONE ×2 (14:52→15:31)
[2019-01-16 15:02] LABS: BASOPHILS % (AUTO) 0.4 %; EOSINOPHILS # (AUTO) 0.2 10^3/uL (0.0-0.7); HGB - HEMOGLOBIN 13.1 g/dL (12.0-16.0); LYMPHOCYTES # (AUTO) 3.5 10^3/uL (1.5-3.5); LYMPHOCYTES % (AUTO) 40.9 %; MEAN CORPUSCULAR HEMOGLOBIN 27.3 pg (27.0-31.0); MEAN CORPUSCULAR VOLUME 88.1 fL (81.0-99.0); MEAN PLATELET VOLUME 10.2 fL (7.9-10.8); MONOCYTES # (AUTO) 0.5 10^3/uL (0.0-1.0); MONOCYTES % (AUTO) 5.7 %; NEUTROPHILS # (AUTO) 4.3 10^3/uL (1.5-6.6); NEUTROPHILS % (AUTO) 50.6 %; PLT - PLATELET COUNT 301 10^3/uL (130-450); RED CELL DISTRIBUTION WIDTH 13.3 % (12.0-15.0); WHITE BLOOD COUNT 8.4 x10^3/uL (4.8-10.8)
[2019-01-16 15:11] LABS: BILIRUBIN,URINE NEGATIVE (NEGATIVE); GLUCOSE, URINE (UA) NEGATIVE (NEGATIVE); KETONES,URINE (UA) NEGATIVE (NEGATIVE); LEUKOCYTE ESTERASE, URINE NEGATIVE (NEGATIVE); NITRITE,URINE NEGATIVE (NEGATIVE); OCCULT BLOOD,URINE NEGATIVE (NEGATIVE); PROTEIN,URINE NEGATIVE (NEGATIVE); UROBILINOGEN,URINE 0.2 (NORMAL) E.U./dL (NORMAL)
[2019-01-16 15:16] LABS: CLARITY,URINE CLEAR (CLEAR)
[2019-01-16 15:16] LABS: ALBUMIN 4.1 g/dL (3.2-5.5); ALBUMIN/GLOBULIN RATIO 1.1 (1.0-2.2); BILIRUBIN,TOTAL 0.3 mg/dL (0.2-1.0); CALCIUM 9.2 mg/dL (8.5-10.3); CREATININE 0.8 mg/dL (0.4-1.0)
--- NOTE | 2019-01-16 15:53 | CT Report ---
Reason: IV only, abd pain Procedure Date: 01/16/2019 Accession Number: [id number] / [id number] Procedure: CT - Abdomen/Pelvis W CPT Code: FULL RESULT: EXAM: CT ABDOMEN AND PELVIS EXAM DATE: 01/16/2019 03:37 PM. CLINICAL HISTORY: Abdominal pain. COMPARISONS: CT of the abdomen and pelvis from 12/07/2017. TECHNIQUE: Routine helical CT imaging was performed through the abdomen and pelvis. IV contrast: 90 cc Optiray 320. Enteric contrast: No. Reconstructions: Coronal and sagittal. In accordance with CT protocol optimization, one or more of the following dose reduction techniques were utilized for this exam: automated exposure control, adjustment of mA and/or KV based on patient size, or use of iterative reconstructive technique. FINDINGS: Lung Bases: Unremarkable. Liver: Unremarkable. No focal lesions. Gallbladder/Bile Ducts: Unremarkable. Spleen: Within normal limits. Pancreas: Unremarkable. Adrenal Glands: No nodules. Kidneys: Relatively symmetric in size and enhancement. No focal lesions or hydronephrosis. Peritoneal Cavity/Bowel: No evidence of bowel obstruction or inflammation. Appendix is within normal limits. Pelvic Organs: Urinary bladder is decompressed. Uterus is surgically absent. No pelvic free fluid or adenopathy. Vasculature: No abdominal aortic aneurysm. Bones: No suspicious osseous lesion. Other: None. IMPRESSION: 1. No evidence of acute infectious or inflammatory process in the abdomen or pelvis. 2. Postsurgical changes from hysterectomy. RAD[facility]
== END 2019-01-16 16:10 | disposition home or self-care (01) ==
LOC: ED 14:08
DX: K29.70 Gastritis, unspecified, without bleeding (principal); N32.81 Overactive bladder; N89.8 Other specified noninflammatory disorders of vagina; R03.0 Elevated blood-pressure reading, without diagnosis of hypertension; Z90.710 Acquired absence of both cervix and uterus
CPT/HCPCS: 36415; 74177; 80053; 81003; 83690; 85025; 85651; 87210; 99283; 99284; A9270; Q9967; 81001; 87086

== ENCOUNTER 2019-04-02 08:15 | Outpatient (CLI) | payer MEDICAID ==
[2019-04-02 10:09] LABS: CHOL/HDL RATIO 6.5 (<4.4); CHOLESTEROL 298 mg/dL; HDL CHOLESTEROL 46 mg/dL; LDL CHOLESTEROL,CALCULATED 229 mg/dL; VLDL CHOLESTEROL 23 mg/dL
== END 2019-04-02 08:16 | disposition home or self-care (01) ==
LOC: LAB 08:15
PROVIDERS: ATTEND Nurse Practitioner
DX: Z13.220 Encounter for screening for lipoid disorders (principal); Z13.29 Encounter for screening for other suspected endocrine disorder
CPT/HCPCS: 36415; 80061; 83721; 84443